=== PATIENT | male | born 1995 | race Caucasian/White ===

== ENCOUNTER 2018-04-27 18:37 | Emergency (ER) | payer OTHER ==
[2018-04-27] MEDS ORDERED: LIDOCAINE 1% INJ-PF (10 MG/ML) 30 ML SDV INJ ONE (20:56)
--- NOTE | 2018-04-27 21:01 | ER Document Report ---
HPI - HPI Patient complains to provider of: L arm laceration Time Seen by Provider: 04/27/18 20:29 Pain Level: 3 Context: 22-year-old male who is healthy presents emergency department after a tree limb landed on his arm causing a laceration. He was out in his yard doing some work in a branch fell and struck him. He did not hit his head. There is no residual splinters left in the wound. Patient denies any severe pain. Patient denies any current bleeding. Patient's tetanus shot is up-to-date. Past Medical History - Social History Smoking Status: Never Smoker Family History: Reviewed & Not Pertinent Vertical Provider Document - CONSTITUTIONAL Agree With Documented VS: Yes General Appearance: WD/WN, No Apparent Distress - INFECTION CONTROL TRAVEL OUTSIDE OF THE [place] IN LAST 30 DAYS: No - HEENT HEENT: Atraumatic, Normocephalic - DERM Integumentary: Warm, Dry, Laceration - 2 cm linear laceration dorsal aspect of left forearm with no bleeding currently at this time. No erythema. Course - Re-evaluation Re-evalutation: 04/27/18 21:00 Well-appearing 22-year-old male presents for laceration plan is to close the wound with simple interrupted sutures. Patient did not need a tetanus shot. 04/27/18 22:10 Repair with 2 simple interrupted sutures. Patient tolerated procedure well, no complications, no bleeding. Patient was given instructions on wound care. - Vital Signs Vital signs: Temp Pulse Resp BP Pulse Ox 98.9 F 63 14 115/66 100 04/27/18 19:23 04/27/18 19:23 04/27/18 19:23 04/27/18 19:23 04/27/18 19:23 Procedures - Laceration/Wound Repair Left Mid- Arm Wound length (cm): 2 Wound's Depth, Shape: Superficial, Linear Laceration pre-procedure: Sterile PPE donned Anesthetic type: 1% Lidocaine Wound explored: Clean Wound Debrided: Minimal Wound Repaired With: Sutures Suture Size/Type: 4:0, Nylon Number of Sutures: 2 Discharge - Discharge Clinical Impression: Laceration Condition: Good Disposition: HOME, SELF-CARE Instructions: Antibiotic Ointment Protection ([facility]), Laceration Care ([facility]), Soap Cleansing ([facility]) Additional Instructions: Please return to your primary doctor, the ED, or an urgent care in 7 days for suture removal. Return immediately if you develop spreading redness around the wound, pus from the wound, worsening pain, or a fever of >100.4. Keep the area clean and dry. Wash gently with soap and water twice daily and cover with antibiotic ointment.
[2018-04-27 22:39] VITALS: BP 128/65
== END 2018-04-27 22:41 | disposition home or self-care (01) ==
LOC: ER 18:37
DX: S51.812A Laceration without foreign body of left forearm, initial encounter (principal); W20.8XXA Other cause of strike by thrown, projected or falling object, initial encounter; Y93.H9 Activity, other involving exterior property and land maintenance, building and construction
CPT/HCPCS: 99282; 12001; J3490